=== PATIENT | female | born 1995 | race Caucasian/White ===

== ENCOUNTER 2017-08-13 09:32 | Emergency (ER) | payer BC ==
[2017-08-13 09:38] VITALS: BP 117/82; PULSE 94; RESP 18; TEMP 98.1; O2SAT 96
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
== END 2017-08-13 10:30 | disposition home or self-care (01) ==
DX: S83.91XA Sprain of unspecified site of right knee, initial encounter (principal); F17.200 Nicotine dependence, unspecified, uncomplicated; V00.328A Other snow-ski accident, initial encounter; Y93.23 Activity, snow (alpine) (downhill) skiing, snowboarding, sledding, tobogganing and snow tubing
CPT/HCPCS: L1830

== ENCOUNTER 2017-10-07 15:14 | Emergency (ER) | payer BC ==
[2017-10-07 15:21] VITALS: O2SAT 97
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
[2017-10-07] MEDS ORDERED: OXYCODONE/APAP 5/325 TAB PO ONE (15:53)
[2017-10-07 16:41] VITALS: BP 117/83; PULSE 80; RESP 18; TEMP 98.1
== END 2017-10-07 16:42 | disposition home or self-care (01) ==
DX: S63.501A Unspecified sprain of right wrist, initial encounter (principal); S53.401A Unspecified sprain of right elbow, initial encounter; S60.221A Contusion of right hand, initial encounter; F17.200 Nicotine dependence, unspecified, uncomplicated; W50.0XXA Accidental hit or strike by another person, initial encounter